=== PATIENT | female | born 1980 | race African-American/Black ===

== ENCOUNTER 2020-10-26 14:09 | Emergency (ER) | payer OTHER ==
[~2020-10-26] VITALS: Ht 170.2 cm; Wt 90.0 kg
[2020-10-26] MEDS ORDERED: SODIUM CHLORIDE 0.9% 1,000 ML IV ONE (14:45)
[2020-10-26 15:23] LABS: EOSINOPHILS % 4.4 % (0.0-5.0); HEMATOCRIT. 35.2 % (36.0-48.0); HEMOGLOBIN. 12.4 g/dL (12.0-16.0); LYMPHOCYTES % 24.3 % (20.0-50.0); MEAN CORPUSCULAR HEMOGLOBIN 30.8 pg (28.0-32.0); MEAN CORPUSCULAR VOLUME 87.3 fL (81.0-99.0); MEAN PLATELET VOLUME 10.9 fl (7.4-10.4); MONOCYTES % 4.9 % (2.0-8.0); NEUTROPHILS % 65.4 % (40.0-76.0); PLATELET 214 x1000/uL (130-400); RED BLOOD CELL COUNT 4.03 mill/uL (4.2-5.4); RED CELL DISTRIBUTION WIDTH 14.1 % (11.6-14.6)
[2020-10-26 15:28] LABS: CHLORIDE 106 mEq/L (98-107)
[2020-10-26 15:33] LABS: D-DIMER 0.4 mg/L FEU (<0.50); INR 0.9; PARTIAL THROMBOPLASTIN TIME 23.5 sec (23.4-31.0); PROTHROMBIN TIME 9.8 sec (9.6-11.0)
[2020-10-26 15:36] LABS: HCG SCREEN NEGATIVE
[2020-10-26] MEDS ORDERED: ONDANSETRON HCL 4MG/2ML INJ IV STA (16:02)
[2020-10-26] MEDS ORDERED: MORPHINE SULFATE 4 MG/ML CPJ (NOT FOR IM USE) IV STA (16:02)
[2020-10-26] MEDS ORDERED: ASPIRIN 81MG TABLET PO ONE (16:15)
[2020-10-26] MEDS ORDERED: NITROGLYCERIN OINT 1GM/INCH UDPKT TD ONE (16:15)
[2020-10-26 20:17] VITALS: BP 162/92
== END 2020-10-26 20:28 | disposition short-term general hospital (02) ==
LOC: ER 14:31 → CANBEDREQ 18:04 → ER 20:28
DX: R07.89 Other chest pain (principal); R05 Cough; I10 Essential (primary) hypertension; E11.9 Type 2 diabetes mellitus without complications; Z87.01 Personal history of pneumonia (recurrent); Z86.711 Personal history of pulmonary embolism; Z88.0 Allergy status to penicillin
CPT/HCPCS: 36415; 71045; 80053; 83690; 83880; 84484; 84703; 85025; 85379; 85610; 85730; 93005; 93970; 96360; 96361; 99285; J7030; Z7610

== ENCOUNTER 2022-03-22 15:55 | Emergency (ER) | payer OTHER ==
[~2022-03-22] VITALS: Ht 167.6 cm; Wt 91.0 kg
[2022-03-22 16:20] VITALS: BP 167/115
[2022-03-22] MEDS ORDERED: IPRATROPIUM BROMIDE (0.02%) 0.5MG/2.5ML NEB HHN STA (20:12)
[2022-03-22] MEDS ORDERED: ALBUTEROL (0.083%) 2.5MG/3ML NEB HHN STA (20:12)
[2022-03-22] MEDS ORDERED: PREDNISONE 20MG TABLET PO STA (20:12)
[2022-03-22] MEDS ORDERED: P20 MT (22:04)
[2022-03-22] MEDS ORDERED: ALBU6.7H3 INH (22:04)
== END 2022-03-22 22:12 | disposition home or self-care (01) ==
LOC: ER 15:55
DX: B34.9 Viral infection, unspecified (principal); I10 Essential (primary) hypertension; E11.9 Type 2 diabetes mellitus without complications; Z88.0 Allergy status to penicillin
CPT/HCPCS: 71045; 94640; 99283; J7512; Z7610